=== PATIENT | male | born 1985 | race Caucasian/White ===

== ENCOUNTER 2016-09-25 13:22 | Emergency (ER) | payer SELFPAY ==
[2016-09-25] MEDS ORDERED: IBUPROFEN 600 MG TAB PO ONE (14:26)
--- NOTE | 2016-09-25 14:27 | EDPHY ---
H & P Time Seen by Provider: 09/25/16 14:05 HPI/ROS: CHIEF COMPLAINT: Skin rash HISTORY OF PRESENT ILLNESS: Left chest skin rash for 4 days. He has had red rash which is painful on the left side of his chest for the past 4 days and extends posteriorly and anteriorly but does not cross the midline. Not associated with shortness of breath or neck stiffness or confusion. REVIEW OF SYSTEMS: Mild headache but no confusion or cough. 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 Alert, normally conversant, neck supple without meningeal signs. Chest clear to auscultation. Scattered vesicular rash on the left chest in a dermatomal pattern which does not cross the midline. No lymphangitis Emergency Department course/MDM: Patient presents with tech spoke presentation for shingles without clinical evidence of complications either respiratory or [employer]. Does not look like cellulitis. Valtrex and prednisone discussed and consented. Warned to avoid small children or immunocompromised patients or women until rash is resolved. Smoking Status: Never smoked Constitutional: Initial Vital Signs Temperature (C) 37 C 09/25/16 13:30 Heart Rate 78 09/25/16 13:30 Respiratory Rate 17 09/25/16 13:30 Blood Pressure 105/76 09/25/16 13:30 O2 Sat (%) 95 09/25/16 13:30 O2 Delivery Mode Room Air Allergies/Adverse Reactions: No Known Allergies Allergy (Unverified 09/25/16 13:26) Home Medications: Medication Instructions Recorded Paracetamol 09/25/16 Valacyclovir HCl [Valtrex] 1,000 mg PO TID #21 tab 09/25/16 predniSONE 10 mg PO AD #15 tab 09/25/16 MDM/Departure - Depart Disposition: Home, Routine, Self-Care Clinical Impression: Shingles Qualifiers: Herpes zoster complications: without complications Qualified Code(s): B02.9 - Zoster without complications Condition: Good Instructions: Shingles (ED) Additional Instructions: Okay to use ibuprofen 600 mg by mouth every 8 hours as needed for pain. Keep rash covered in Claritza completely healed. You need to avoid being around people or anyone with immune system compromise until the rash is completely resolved. Prescriptions: predniSONE 10 mg PO AD #15 tab Valacyclovir HCl [Valtrex] 1,000 mg PO TID #21 tab Referrals: Yvonne Cabello MD [Medical Doctor] - As per Instructions
[2016-09-25 14:52] VITALS: BP 119/65; PULSE 72; RESP 18; TEMP 98.2; O2SAT 97
== END 2016-09-25 14:45 | disposition home or self-care (01) ==
DX: B02.9 Zoster without complications (principal)